=== PATIENT | female | born 1970 ===

== ENCOUNTER 2017-11-13 16:45 | Emergency (ER) | payer SELFPAY ==
[2017-11-13 16:56] VITALS: BP 109/68; RESP 16; TEMP 98.6; O2SAT 100
--- NOTE | 2017-11-13 17:50 | ED PDOC ---
Syncope/Near Syncope/Dizziness Time Seen by Provider: 11/13/17 17:00 Chief Complaint (Nursing): Dizziness/Lightheaded Chief Complaint (Provider): Dizziness History Per: Patient History/Exam Limitations: no limitations Onset/Duration Of Symptoms: Days (x6) Current Symptoms Are (Timing): Still Present Additional Complaint(s): 47 year old female presents to the emergency department complaining of dizziness, since waking up on 11/08/2017. She reports feeling like the room is spinning, and the sensation worsens with walking, getting up from lying/ sitting position, and with turning of head. No nausea, vomiting, blurry vision, focal weakness, or headache. Patient also reports mild ringing in the left ear. Denies any respiratory symptoms. PMD: [facility] in [place] Past Medical History Reviewed: Historical Data, Nursing Documentation, Vital Signs Vital Signs: Last Vital Signs Temp 98.6 F 11/13/17 16:53 Pulse 87 11/13/17 16:53 Resp 16 11/13/17 16:53 BP 109/68 11/13/17 16:53 Pulse Ox 100 11/13/17 16:53 - Medical History PMH: Diabetes - Surgical History Surgical History: No Surg Hx - Family History Family History: States: Diabetes - Social History Current smoker - smoking cessation education provided: No Alcohol: None - Home Medications Home Medications: Ambulatory Orders Medication Instructions Recorded Meclizine HCl 50 mg PO BID PRN #30 tablet 11/13/17 - Allergies Allergies/Adverse Reactions: Allergies Allergy/AdvReac Type Severity Reaction Status Date / Time No Known Allergies Allergy Verified 11/13/17 16:53 Review of Systems ROS Statement: Except As Marked, All Systems Reviewed And Found Negative (as per HPI otherwise negative) Eyes: Negative for: Vision Change ENT: Positive for: Other (ear ringing, left) Cardiovascular: Negative for: Light Headedness Gastrointestinal: Negative for: Nausea, Vomiting Neurological: Positive for: Dizziness (room-spinning). Negative for: Weakness, Headache Physical Exam - Reviewed Nursing Documentation Reviewed: Yes Vital Signs Reviewed: Yes - Laboratory Results Result Diagrams: 11/13/17 17:58 11/13/17 17:58 - ECG ECG: Positive for: Interpreted By Me, Viewed By Me ECG Rhythm: Positive for: Normal QRS, Normal ST Segment, Sinus Rhythm Rate: 78 O2 Sat by Pulse Oximetry: 100 (RA) Pulse Ox Interpretation: Normal Medical Decision Making Medical Decision Making: Initial Impression: Vertigo Differentials include: electrolyte abnormality, dehydration, brain mass, Meniere 's disease or DPPV Time: 17:29 Initial Plan: * Blood type and screen * CMP * Magnesium * Phosphorous * TSH * CBC * EKG * Urine * Urine dipstick * Meclizine 50 mg PO * Pending CT Head w/ contrast Accession No. : [id number] Patient Name / ID : PARISH ROBLES / [id number] Exam Date : 11/13/2017 17:44:06 ( Approved ) Study Comment : Sex / Age : F / 47Y Creator : Elen Pathak MD Dictator : Elen Pathak MD Program Project Manager : Mover : Elen Pathak MD Approver2 : Report Date : 11/13/2017 17:58:13 My Comment : PROCEDURE: CT HEAD WITHOUT CONTRAST. HISTORY: vertigo new onset intractable without nausea COMPARISON: None available. TECHNIQUE: Axial computed tomography images were obtained through the head/brain without intravenous contrast. Radiation dose: Total exam DLP = 771.67 mGy-cm. This CT exam was performed using one or more of the following dose reduction techniques: Automated exposure control, adjustment of the mA and/or kV according to patient size, and/or use of iterative reconstruction technique. FINDINGS: HEMORRHAGE: No intracranial hemorrhage. BRAIN: No mass effect or edema. No atrophy or chronic microvascular ischemic changes. VENTRICLES: No hydrocephalus. CALVARIUM: Unremarkable. PARANASAL SINUSES: Unremarkable as visualized. No significant inflammatory changes. MASTOID AIR CELLS: Unremarkable as visualized. No inflammatory changes. OTHER FINDINGS: None. IMPRESSION: No acute intracranial pathology identified. Elevated glucose c/w diabetes. No emergently significant lab abnormalities. 18:54 On reassessment, patient notes no improvement in symptoms. Ordered IV fluids and 15mg IV Toradol. Scribe Attestation: Documented by Charmaine Valero, acting as a scribe for Talia Sapp MD Provider Scribe Attestation: All medical record entries made by the Scribe were at my direction and personally dictated by me. I have reviewed the chart and agree that the record accurately reflects my personal performance of the history, physical exam, medical decision making, and the department course for this patient. I have also personally directed, reviewed, and agree with the discharge instructions and disposition. Disposition - Clinical Impression Clinical Impression: Dizziness Counseled Patient/Family Regarding: Studies Performed, Diagnosis, Need For Followup, Rx Given - Disposition Referrals: [facility] [Outside] - 11/14/17 ([facility] Disposition: Routine/Home Disposition Time: 20:55 Condition: IMPROVED Prescriptions: Meclizine HCl 50 mg PO BID PRN #30 tablet PRN Reason: Dizziness Instructions: Vertigo (ED) Forms: [facility] ED School/Work Excuse Print Language: VIETNAMESE
--- NOTE | 2017-11-13 17:59 | CT ---
PROCEDURE: CT HEAD WITHOUT CONTRAST. HISTORY: vertigo new onset intractable without nausea COMPARISON: None available. TECHNIQUE: Axial computed tomography images were obtained through the head/brain without intravenous contrast. Radiation dose: Total exam DLP = 771.67 mGy-cm. This CT exam was performed using one or more of the following dose reduction techniques: Automated exposure control, adjustment of the mA and/or kV according to patient size, and/or use of iterative reconstruction technique. FINDINGS: HEMORRHAGE: No intracranial hemorrhage. BRAIN: No mass effect or edema. No atrophy or chronic microvascular ischemic changes. VENTRICLES: No hydrocephalus. CALVARIUM: Unremarkable. PARANASAL SINUSES: Unremarkable as visualized. No significant inflammatory changes. MASTOID AIR CELLS: Unremarkable as visualized. No inflammatory changes. OTHER FINDINGS: None. IMPRESSION: No acute intracranial pathology identified.
[2017-11-13 18:04] LABS: BASO % 0.5 % (0.0-2.0); EOS # 0.2 K/uL (0.0-0.7); EOS % 2.3 % (0.0-4.0); HEMOGLOBIN 10.1 g/dL (12.0-16.0); LYMPH # 2.4 K/uL (1.0-4.3); LYMPH % 30.4 % (20.0-40.0); MEAN CELL VOLUME 86.1 fl (81.0-99.0); MEAN CORPUSCULAR HEMOGLOBIN 27.5 pg (27.0-31.0); MEAN CORPUSCULAR HGB CONC 31.9 g/dL (33.0-37.0); MEAN PLATELET VOLUME 9.4 fl (7.2-11.7); MONO # 0.3 K/uL (0.0-0.8); MONO % 4.3 % (0.0-10.0); NEUT # 4.9 K/uL (1.8-7.0); NEUT % 62.5 % (50.0-75.0); RBC 3.66 Mil/uL (3.80-5.20); RED CELL DISTRIBUTION WIDTH 15.4 % (11.5-14.5); WHITE BLOOD COUNT 7.9 K/uL (4.8-10.8)
[2017-11-13 18:14] LABS: ALB/GLOB RATIO 1.2 (1.0-2.1); ALBUMIN 3.9 g/dL (3.5-5.0); ALT/SGPT 27 U/L (9-52); AST/SGOT 30 U/L (14-36); BLOOD UREA NITROGEN 9 mg/dl (7-17); CALCIUM 8.9 mg/dL (8.4-10.2); GFR AFRICAN-AMERICAN > 60; GFR NON-AFRICAN AMERICAN > 60
[2017-11-13] MEDS ORDERED: Sodium Chloride 0.9% 1,000 ML IV STA (18:54)
[2017-11-13 19:08] VITALS: PULSE 78
--- NOTE | 2017-11-14 08:45 | CARD ---
APPROVED REPORT EKG Measurement Heart [id number] <Conclusion> Normal sinus rhythm Normal ECG
== END 2017-11-13 21:25 | disposition home or self-care (01) ==
LOC: H.ER 16:45
DX: R42 Dizziness and giddiness (principal); E11.9 Type 2 diabetes mellitus without complications
CPT/HCPCS: 70450; 80053; 81025; 82948; 83735; 84100; 84443; 85025; 86850; 86900; 93005; 96374; 99285; J1885; J7040

== ENCOUNTER 2018-07-26 08:56 | Emergency (ER) | payer SELFPAY ==
[2018-07-26 09:05] VITALS: O2SAT 100
--- NOTE | 2018-07-26 09:56 | ED PDOC ---
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 Patient report she had a left ovarian biopsy performed on Sunday by Dr. Eddy in an outpatient care. She reports the pain has worsened. She is unable to sleep, has difficulty walking and going through 3 extra-large pads per day. Patient denies dizziness, nausea or following up with a supervisor malt house. She takes metformin for diabetes. PMD: Abnormal Vaginal Bleeding: Yes Past Medical History Reviewed: Historical Data, Nursing Documentation, Vital Signs Vital Signs: Last Vital Signs Temp 98.7 F 07/26/18 09:03 Pulse 80 07/26/18 09:03 Resp 18 07/26/18 09:03 BP 106/71 07/26/18 09:03 Pulse Ox 100 07/26/18 09:03 - Medical History PMH: Diabetes Denies: Chronic Kidney Disease - Family History Family History: States: Diabetes - Social History Current smoker - smoking cessation education provided: No Alcohol: None Drugs: Denies - Home Medications Home Medications: Ambulatory Orders Medication Instructions Recorded RX: Meclizine HCl 50 mg PO BID PRN #30 tablet 11/13/17 MedroxyPROGESTERone [Provera] 20 mg PO TID #42 tab 07/26/18 RX: metFORMIN [glucOPHAGE] 500 mg PO BID 07/26/18 - Allergies Allergies/Adverse Reactions: Allergies Allergy/AdvReac Type Severity Reaction Status Date / Time No Known Allergies Allergy Verified 11/13/17 16:53 Review of Systems ROS Statement: Except As Marked, All Systems Reviewed And Found Negative Gastrointestinal: Positive for: Abdominal Pain. Negative for: Nausea Genitourinary Female: Positive for: Vaginal Bleeding Neurological: Negative for: Dizziness Psych: Negative for: Suicidal ideation (homicidal ideation) Physical Exam - Reviewed Nursing Documentation Reviewed: Yes Vital Signs Reviewed: Yes - Physical Exam Appears: Positive for: Non-toxic, No Acute Distress Head Exam: Positive for: ATRAUMATIC, NORMAL INSPECTION, NORMOCEPHALIC Skin: Positive for: Normal Color, Warm, Dry Eye Exam: Positive for: Normal appearance (no conjunctival of pallor), EOMI, PERRL ENT: Positive for: Normal ENT Inspection Neck: Positive for: Normal, Painless ROM, Supple. Negative for: Decreased ROM Cardiovascular/Chest: Positive for: Regular Rate, Rhythm. Negative for: Murmur Respiratory: Positive for: Normal Breath Sounds. Negative for: Decreased Breath Sounds, Wheezing, Respiratory Distress Gastrointestinal/Abdominal: Positive for: Soft, Tenderness (lower abdomen) Pelvic Exam: Positive for: Other (deferred until gynecologic room) Back: Positive for: Normal Inspection. Negative for: L CVA Tenderness, R CVA Tenderness Extremity: Positive for: Normal ROM. Negative for: Tenderness, Pedal Edema, Deformity Neurologic/Psych: Positive for: Alert, Oriented (x3). Negative for: Motor/Sensory Deficits - Laboratory Results Result Diagrams: 07/26/18 10:06 07/26/18 10:06 - ECG O2 Sat by Pulse Oximetry: 100 (RA) Pulse Ox Interpretation: Normal Medical Decision Making Medical Decision Making: Time: 926 Initial Plan: Labs ordered to r/o anemia and perform pelvic examinations. If abn ormalities found, will consult supervisor malt house. --BMP --CBC w/ Differential --Glucose, POC Routine --Urinalysis --Reevaluation Scribe Attestation: Documented by Heather Vivar, acting as a scribe for Chandrika Hernandez MD. Provider Scribe Attestation: All medical record entries made by the Scribe were at my direction and personally dictated by me. I have reviewed the chart and agree that the record accurately reflects my personal performance of the history, physical exam, medical decision making, and the department course for this patient. I have also personally directed, reviewed, and agree with the discharge instructions and disposition. Spoke with Dr. Eddy regarding pt. Dr. Eddy recommends taking Provera to stop the bleeding and will follow up with pt in 2 days. Pt informed of status. Return parameters discussed. Labs wnl and pt with stable vitals. Disposition - Clinical Impression Clinical Impression: Abnormal vaginal bleeding - Disposition Disposition: Routine/Home Disposition Time: 12:10 Condition: STABLE Additional Instructions: Follow up with Dr. Eddy in one week. Take Provera as prescribed (20 mg three times per day for 7 days). Return to the emergency department if you develop weakness, dizziness, worsened bleeding, or other new symptoms. Prescriptions: MedroxyPROGESTERone [Provera] 20 mg PO TID #42 tab Instructions: Dysfunctional Uterine Bleeding (ED) Forms: [employer] (Norwegian), [employer] (Moroccan) Print Language: PASHTO
[2018-07-26 10:17] LABS: BASO % 0.6 % (0.0-2.0); EOS # 0.2 K/uL (0.0-0.7); EOS % 3.2 % (0.0-4.0); HEMOGLOBIN 10.8 g/dL (12.0-16.0); LYMPH # 2.7 K/uL (1.0-4.3); LYMPH % 38.8 % (20.0-40.0); MEAN CELL VOLUME 87.5 fl (81.0-99.0); MEAN CORPUSCULAR HGB CONC 33.2 g/dL (33.0-37.0); MEAN PLATELET VOLUME 8.4 fl (7.2-11.7); MONO # 0.4 K/uL (0.0-0.8); MONO % 5.7 % (0.0-10.0); NEUT # 3.6 K/uL (1.8-7.0); NEUT % 51.7 % (50.0-75.0); RBC 3.7 Mil/uL (3.80-5.20); RED CELL DISTRIBUTION WIDTH 15.5 % (11.5-14.5)
[2018-07-26 10:21] LABS: BLOOD UREA NITROGEN 10 mg/dl (7-17); CALCIUM 8.7 mg/dL (8.4-10.2); GFR NON-AFRICAN AMERICAN > 60
[2018-07-26 11:13] LABS: URINE BILIRUBIN NEGATIVE (NEGATIVE); URINE BLOOD LARGE (NEGATIVE); URINE CLARITY SLIGHTY-CLOUDY (Clear); URINE COLOR YELLOW (YELLOW); URINE GLUCOSE (UA) NEG (Normal); URINE LEUKOCYTE ESTERASE NEG Leu/uL (Negative); URINE PROTEIN NEGATIVE (NEGATIVE); URINE UROBILINOGEN 0.2-1.0 mg/dL (0.2-1.0)
[2018-07-26 12:59] VITALS: BP 107/68; PULSE 86; RESP 17; TEMP 97.9
== END 2018-07-26 12:59 | disposition home or self-care (01) ==
LOC: H.ER 08:56
DX: N93.9 Abnormal uterine and vaginal bleeding, unspecified (principal); E11.9 Type 2 diabetes mellitus without complications; Z79.84 Long term (current) use of oral hypoglycemic drugs